=== PATIENT | female | born 1970 | race Caucasian/White ===

== ENCOUNTER 2024-04-19 23:41 | Emergency (ER) | payer OTHER ==
[2024-04-20] MEDS ORDERED: OXYMETAZOLINE HCL 0.05% 15ML NAS ONE ×2 (02:12→03:19)
--- NOTE | 2024-04-20 03:07 | ER ---
Nurse's Notes [facility] Name: Amy Amezquita Age: 53 yrs Sex: Female : 1970 Arrival Date: 04/19/2024 Time: 23:41 Bed DX1 Private MD: Diagnosis: Epistaxis Presentation: 04/20 00:00 Chief complaint: Patient states: NOSE BLEED FOR ABOUT AN HOUR AND A HALF THAT WON'T vc1 STOP. 00:00 Coronavirus screen: Client denies travel out of the [place] in the last 14 days. At this vc1 time, the client does not indicate any symptoms associated with coronavirus-19. Ebola Screen: Patient negative for fever greater than or equal to 101.5 degrees Fahrenheit, and additional compatible Ebola Virus Disease symptoms Patient denies exposure to infectious person. Patient denies travel to an Ebola-affected area in the 21 days before illness onset. No symptoms or risks identified at this time. Initial Sepsis Screen: Does the patient meet any 2 criteria? No. Patient's initial sepsis screen is negative. Does the patient have a suspected source of infection? No. Patient's initial sepsis screen is negative. Risk Assessment: Do you want to hurt yourself or someone else? Patient reports no desire to harm self or others. Onset of symptoms was April 19, 2024 at 22:30. 00:00 Method Of Arrival: Ambulatory vc1 00:00 Acuity: ROME 4 vc1 Triage Assessment: 03:14 General: Appears in no apparent distress. comfortable, slender, well groomed, well vc1 developed, well nourished, Behavior is calm, cooperative, appropriate for age. Pain: Denies pain. EENT: Nares with bleeding noted Reports ringing NOSE BLEED. Neuro: Level of Consciousness is awake, alert, obeys commands, Oriented to person, place, time, situation, Appropriate for age. Cardiovascular: Heart tones S1 S2 present Capillary refill < 3 seconds Patient's skin is warm and dry. Respiratory: Airway is patent Respiratory effort is even, unlabored, Respiratory pattern is regular, symmetrical, Breath sounds are clear bilaterally. GI: Abdomen is flat, Bowel sounds present X 4 quads. : No deficits noted. No signs and/or symptoms were reported regarding the genitourinary system. Derm: No deficits noted. No signs and/or symptoms reported regarding the dermatologic system. Musculoskeletal: Circulation, motion, and sensation intact. Range of motion: intact in all extremities. 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 - Infectious Disease History:: Denies. - Social history:: Smoking status: Patient denies any tobacco usage or history of. Screenin:00 [facility] ED Fall Risk Assessment (Adult) History of falling in the last 3 months, vc1 including since admission No falls in past 3 months (0 pts) Confusion or Disorientation No (0 pts) Intoxicated or Sedated No (0 pts) Impaired Gait No (0 pts) Mobility Assist Device Used No (0 pt) Altered Elimination No (0 pt) Score/Fall Risk Level 0 - 2 = Low Risk Oriented to surroundings, Maintained a safe environment, Educated pt \T\ family on fall prevention, incl call for assistance when getting out of bed. Abuse screen: Denies threats or abuse. Nutritional screening: No deficits noted. Tuberculosis screening: No symptoms or risk factors identified. Vital Signs: 00:00 BP 146 / 68; Pulse 72; Resp 14; Temp 97.9; Pulse Ox 100% ; Weight 68.04 kg; Height 5 vc1 ft. 4 in. ; Pain 0/10; 00:00 Body Mass Index 25.75 (68.04 kg, 162.56 cm) vc1 00:00 Pain Scale: Adult vc1 ED Course: 04/19 23:46 Patient arrived in ED. [id number] 04/20 00:00 Arm band placed on right wrist. vc1 01:55 Julio Wood MD is Attending Physician. ec2 03:12 Triage completed. vc1 03:16 No provider procedures requiring assistance completed. Patient did not have IV access vc1 during this emergency room visit. Administered Medications: 02:38 Drug: Oxymetazoline Intranasal Drops (0.05 %) 1 sprays Intranasal once {Note: vc1 administered by Dr. Wood.} Route: Intranasal; Site: both nares; 03:21 Drug: Oxymetazoline Intranasal Drops (0.05 %) 1 sprays Intranasal once {Note: vc1 ADMINISTERED BY DR. WOOD.} Route: Intranasal; Site: both nares; Medication: 03:14 VIS not applicable for this client. vc1 Outcome: 03:07 Discharge ordered by . ec2 03:16 Discharged to home ambulatory, vc1 03:16 Condition: good 03:16 Discharge instructions given to patient, Instructed on discharge instructions, follow up and referral plans. Demonstrated understanding of instructions, follow-up care, 03:21 Patient left the ED. vc1 Signatures: Ivory Mcwilliams [email or web address] Shakira Garrido RN RN vc1 Julio Wood MD MD ec2 Corrections: (The following items were deleted from the chart) 03:12 01:08 Chief complaint: vc1 vc1
--- NOTE | 2024-04-20 03:08 | EDPHYS ---
Physician Documentation [facility] Name: Amy Amezquita Age: 53 yrs Sex: Female : 1970 Arrival Date: 04/19/2024 Time: 23:41 Bed DX1 Private MD: ED Physician Julio Wood HPI: 04/20 03:08 This 53 yrs old Female presents to ER via Unassigned with complaints of Nose ec2 Bleed, Pt is on blood thinners and nose has been bleeding for a hour. 03:08 Patient arrives today for epistaxis. Is on warfarin. Has been having bleeding from the ec2 right nare.. 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 - Infectious Disease History:: Denies. - Social history:: Smoking status: Patient denies any tobacco usage or history of. ROS: 03:08 Constitutional: as per hpi ec2 Exam: 03:08 Constitutional: GEN: NAD Head: atraumatic Eyes: EOMI Ears: External ears are normal. ec2 Nose: Right nare with active bleeding present. CV: regular rate LUNGS: no respiratory distress ABD: non-distended SKIN: no evidence of rashes MSK: no evidence of trauma Vital Signs: 00:00 BP 146 / 68; Pulse 72; Resp 14; Temp 97.9; Pulse Ox 100% ; Weight 68.04 kg; Height 5 vc1 ft. 4 in. ; Pain 0/10; 00:00 Body Mass Index 25.75 (68.04 kg, 162.56 cm) vc1 00:00 Pain Scale: Adult vc1 Procedures: 03:08 Epistaxis treatment: A moderate amount of bleeding noted from right nare. Treated using ec2 Oxymetazoline sprays, nasal clamp, Bleeding stopped. MDM: 02:24 Medical Screening Exam initiated ec2 03:08 Data reviewed: vital signs, nurses notes. ED course: Patient arrives today for bleeding ec2 from the right nare. Examination as above. I was able to get bleeding cessation with Oxy metolazone as well as nasal clamp. Will discharge home. Return precautions given.. Administered Medications: 02:38 Drug: Oxymetazoline Intranasal Drops (0.05 %) 1 sprays Intranasal once {Note: vc1 administered by Dr. Wood.} Route: Intranasal; Site: both nares; 03:21 Drug: Oxymetazoline Intranasal Drops (0.05 %) 1 sprays Intranasal once {Note: vc1 ADMINISTERED BY DR. WOOD.} Route: Intranasal; Site: both nares; Disposition Summary: 04/20/24 03:07 Discharge Ordered Notes: Location: Home ec2 Condition: Stable ec2 Diagnosis - Epistaxis ec2 Followup: ec2 - With: Private Physician - When: - Reason: Re-evaluation by your physician Discharge Instructions: - Discharge Summary Sheet ec2 - Nosebleed, Adult, [id number] ec2 Forms: - Medication Reconciliation Form ec2 - Antibiotic Education ec2 - Prescription Opioid Use ec2 - Patient Portal Instructions ec2 - Leadership Thank You Letter ec2 Signatures: Shakira Garrido RN RN vc1 Julio Wood MD MD ec2
[2024-04-20 08:53] VITALS: BP 146/68; TEMP 97.9; O2SAT 100
== END 2024-04-20 03:21 | disposition home or self-care (01) ==
LOC: ER 23:41
DX: R04.0 Epistaxis (principal); Z95.2 Presence of prosthetic heart valve; Z79.01 Long term (current) use of anticoagulants
CPT/HCPCS: 30901; 99283